=== PATIENT | male | born 1960 | race Caucasian/White ===

== ENCOUNTER → 2022-01-22 | Outpatient (CLI) | payer OTHER ==
--- NOTE | 2022-01-22 14:01 | RAD ---
XR EXAM OF ANKLE_LEFT 2V History: Chronic pain, disability. Comparison: None. Findings: Osseous mineralization is normal. No acute fracture or dislocaton. The ankle mortise and talar dome a re intact. Mild cortical irregularity at the distal fibula and tiny calcific density distal to the me dial malleolus likely represents sequela of old trauma. No focal soft tissue swelling. Impression: 1. 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 No acute findings. Electronically signed by: Jose Nathan MD (01/22/2022 1:59 PM) [id number]
--- NOTE | 2022-01-22 14:14 | RAD ---
XR CERVICAL SPINE 4-5V History: Chronic pain, disability Comparison: None. Technique: AP, lateral, bilateral oblique and odontoid views of the cervical spine. Findings: There are 7 non-rib bearing cervical vertebral segments. There is no evidence of fracture. No destructive osseous lesions are seen. Mild anterolisthesis of and C4 on C5. Multilevel facet hypertrophy greatest at C4-C5 on the left. Additionally multilevel uncovertebral hyp ertrophy greatest at C5-C6 and C6-C7. Multilevel degenerative disc space narrowing greatest at C5-C6 and C6-C7. Left foraminal stenosis at C5-C6 and C6-C7 and right foraminal stenosis at C6-C7. Streaky bilateral upper lobe airspace opacities. Partially visualized shoulder arthroplasties. IMPRESSION: 1. Multilevel degenerative disease of the cervical spine with potential for foraminal stenoses at mu ltiple sites. Recommend MRI if there is concern for radiculopathy. 2. Streaky bilateral upper lobe airspace opacities may represent infection or fibrotic changes. Frank mmend correlation with PA and lateral chest radiographs. Electronically signed by: Jose Nathan MD (01/22/2022 2:11 PM) [id number]
== END ==
LOC: RAD 10:49
PROVIDERS: ATTEND Family Medicine
DX: M47.812 Spondylosis without myelopathy or radiculopathy, cervical region (principal); M48.02 Spinal stenosis, cervical region; M43.12 Spondylolisthesis, cervical region; M47.892 Other spondylosis, cervical region; R91.8 Other nonspecific abnormal finding of lung field; M19.072 Primary osteoarthritis, left ankle and foot
CPT/HCPCS: 72050; 73600